=== PATIENT | female | born 1995 | race African-American/Black ===

== ENCOUNTER 2016-11-16 07:16 | Emergency (ER) | payer SELFPAY ==
[2016-08-19 16:54] VITALS: BP 157/98
[~2016-11-16 07:16] MED LIST: CEPH-264 PO; METR500T PO
== END 2016-11-16 07:40 | disposition left against medical advice (07) ==
LOC: ER 07:16
DX: M25.572 Pain in left ankle and joints of left foot (principal); Z53.21 Procedure and treatment not carried out due to patient leaving prior to being seen by health care provider; X58.XXXA Exposure to other specified factors, initial encounter; Y93.89 Activity, other specified; Y92.89 Other specified places as the place of occurrence of the external cause; Y99.8 Other external cause status

== ENCOUNTER 2017-01-25 11:20 | Emergency (ER) | payer SELFPAY ==
[~2017-01-25] VITALS: Ht 157.5 cm; Wt 127.0 kg
[2017-01-25 12:15] VITALS: BP 143/74
--- NOTE | 2017-01-25 12:32 | PHYS DOC ---
Past Medical History Past Medical History: No Pertinent History Additional Past Medical Histor: slightly enlarged heart, TRICH Past Surgical History: No Surgical History Alcohol Use: None Drug Use: Marijuana Adult General Chief Complaint Chief Complaint: CHEST PAIN-NON CARDIAC NATURE HPI HPI Patient is a 21 year old female who presents with complaint of an acute episode of shortness of breath and chest pain. Patient states that she was at work upon onset of symptoms. Patient states she started to feel sharp pain in the middle of her chest and had associated shortness of breath. Patient states that she started feeling very anxious at the time of occurrence. Patient states that her episode started at 1100 today. Patient states symptoms lasted for approximately 15 minutes and then resolved spontaneously. Patient did not feel like she was having any palpitations. Patient states currently she has no chest pain and states that she feels at her baseline state of health. Patient denies any history of medical problems and is not currently on any medications or supplements. Patient states that she had a similar episode several months ago that resolved on its own. Patient feels that she is likely experiencing panic attacks. Patient states that she has stress in her life which she admits that she does not address her cope with well. Patient denies any significant family history for heart trouble or blood clots. Review of Systems Review of Systems Constitutional: Denies fever or chills [] Eyes: Denies change in visual acuity, redness, or eye pain [] HENT: Denies nasal congestion or sore throat [] Respiratory: Shortness of breath [] Cardiovascular: Chest pain, denies edema [] GI: Denies abdominal pain, nausea, vomiting, bloody stools or diarrhea [] : Denies dysuria or hematuria [] Musculoskeletal: Denies back pain or joint pain [] Integument: Denies rash or skin lesions [] Neurologic: Denies headache, focal weakness or sensory changes [] Family History Family History Negative for cardiac problems or clotting disorders Current Medications Current Medications None Allergies Allergies Allergies Coded Allergies Type Severity Reaction Last Updated Verified No Known Drug Allergies 06/19/14 No Physical Exam Physical Exam Constitutional: Alert, obese, afebrile, no acute distress. [] HENT: Normocephalic, atraumatic, bilateral external ears normal, oropharynx moist, no oral exudates, nose normal. [] Eyes: PERRLA, EOMI, conjunctiva normal, no discharge. [] Neck: Normal range of motion, no tenderness, supple, no stridor. [] Cardiovascular:Heart rate regular rhythm, no murmur [] Lungs & Thorax: Bilateral breath sounds clear to auscultation [] Abdomen: Bowel sounds normal, soft, no tenderness, no masses, no pulsatile masses. [] Skin: Warm, dry, no erythema, no rash. [] Back: No tenderness, no CVA tenderness. [] Extremities: No tenderness, no cyanosis, no clubbing, ROM intact, no edema. [] Neurologic: Alert and oriented X 3, normal motor function, normal sensory function, no focal deficits noted. [] Current Patient Data Vital Signs Vital Signs Date Time Temp Pulse Resp B/P (MAP) Pulse Ox O2 Delivery O2 Flow Rate FiO2 01/25/17 12:15 98.9 66 18 143/74 (97) 98 Room Air 98.9 EKG EKG Interpreted by me: Heart rate 67, sinus rhythm, normal intervals, normal axis, no acute ST elevations or depressions, nonspecific T-wave inversion in lead 3 [] Radiology/Procedures Radiology/Procedures Not performed [] Course & Med Decision Making Course & Med Decision Making Pertinent Labs and Imaging studies reviewed. (See chart for details) The patient had a mildly elevated blood pressure of 143 systolic. At this time no treatment is recommended however I did explain to patient that she would need continued follow-up on an outpatient basis to evaluate for essential hypertension and possible need for treatment. The patient was offered a chest x- ray however she declined stating that she felt well and did not feel that she needed this time. She states that she feels confident her symptoms are likely due to stress with a panic attack and does not wish to have any further workup. I do not feel this to be unreasonable at this time. The patient agreed to close follow-up in 2-3 days with her primary doctor for reevaluation. Advised return to emergency department for any worsening symptoms. Patient was understanding and in agreement with treatment plan. Dragon Disclaimer Dragon Disclaimer This electronic medical record was generated, in whole or in part, using a voice recognition dictation system. Departure Departure Impression: Primary Impression: Acute stress reaction Disposition: 01 HOME, SELF-CARE Condition: IMPROVED Referrals: NO PCP (PCP) Patient Instructions: Anxiety and Panic Attacks, [id number], Stress Additional Instructions: Follow-up in 2-3 days with primary doctor. Return to emergency department for any worsening symptoms. COREY WALLACE MD January 25, 2017 12:32
--- NOTE | 2017-01-25 15:18 | EKG ---
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
== END 2017-01-25 12:52 | disposition home or self-care (01) ==
LOC: ER 11:30
DX: F43.0 Acute stress reaction (principal); R07.89 Other chest pain; F12.10 Cannabis abuse, uncomplicated
CPT/HCPCS: 93005; 99283-25

== ENCOUNTER 2017-01-26 23:47 | Emergency (ER) | payer SELFPAY ==
[~2017-01-26] VITALS: Ht 157.5 cm; Wt 124.7 kg
[2017-01-27] VITALS: BP 161/84
[2017-01-27] MEDS ORDERED: PRED20TA PO (00:03)
[2017-01-27] MEDS ORDERED: ALBU8.5H5 IH (00:03)
[2017-01-27] MEDS ORDERED: AZIT250T6 PO (00:03)
--- NOTE | 2017-01-27 00:04 | PHYS DOC ---
Past Medical History Past Medical History: No Pertinent History, STD Additional Past Medical Histor: slightly enlarged heart Past Surgical History: No Surgical History Alcohol Use: None Drug Use: None Adult General Chief Complaint Chief Complaint: COUGH HPI HPI Patient is a 21 year old female presents to the emergency department with a ten -day history of cough. No fever. Review of Systems Review of Systems Constitutional: Denies fever or chills [] Eyes: Denies change in visual acuity, redness, or eye pain [] HENT: Denies nasal congestion or sore throat [] Respiratory: Denies cough or shortness of breath [] Cardiovascular: No additional information not addressed in HPI [] GI: Denies abdominal pain, nausea, vomiting, bloody stools or diarrhea [] : Denies dysuria or hematuria [] Musculoskeletal: Denies back pain or joint pain [] Integument: Denies rash or skin lesions [] Neurologic: Denies headache, focal weakness or sensory changes [] Endocrine: Denies polyuria or polydipsia [] Allergies Allergies Allergies Coded Allergies Type Severity Reaction Last Updated Verified No Known Drug Allergies 06/19/14 No Physical Exam Physical Exam Constitutional: Well developed, well nourished, no acute distress, non-toxic appearance. [] HENT: Normocephalic, atraumatic, bilateral external ears normal, oropharynx moist, no oral exudates, nose normal. [] Eyes: PERRLA, EOMI, conjunctiva normal, no discharge. [] Neck: Normal range of motion, no tenderness, supple, no stridor. No lymphadenopathy [] Cardiovascular:Heart rate regular rhythm, no murmur [] Lungs & Thorax: Scattered rhonchi Abdomen: Bowel sounds normal, soft, no tenderness, no masses, no pulsatile masses. [] Skin: Warm, dry, no erythema, no rash. [] Back: No tenderness, no CVA tenderness. [] Extremities: No tenderness, no cyanosis, no clubbing, ROM intact, no edema. [] Neurologic: Alert and oriented X 3, normal motor function, normal sensory function, no focal deficits noted. [] Psychologic: Affect normal, judgement normal, mood normal. [] EKG EKG [] Radiology/Procedures Radiology/Procedures [] Course & Med Decision Making Course & Med Decision Making Pertinent Labs and Imaging studies reviewed. (See chart for details) [] Dragon Disclaimer Dragon Disclaimer This electronic medical record was generated, in whole or in part, using a voice recognition dictation system. Departure Departure Impression: Primary Impression: Bronchitis Disposition: 01 HOME, SELF-CARE Condition: STABLE Referrals: NO PCP (PCP) Patient Instructions: Acute Bronchitis Scripts Prednisone (PREDNISONE) 20 Mg Tablet 20 MG PO DAILY for 5 Days, #5 TAB Prov: HAYDEN GUZMÁN APRN 01/27/17 Albuterol Sulfate (Proair Hfa) 8.5 Gm Hfa.aer.ad 8.5 GM IH 4 times a day Y for shortness of air, #1 INHALER Prov: HAYDEN GUZMÁN APRN 01/27/17 Azithromycin (AZITHROMYCIN TABLET) 250 Mg Tablet 250 MG PO DAILY for ANTI-BIOTIC, #6 TAB 0 Refills 2 tablets on day 1 and 1 tablets on day 2 through 5 Prov: HAYDEN GUZMÁN APRN 01/27/17 HAYDEN GUZMÁN APRN January 27, 2017 00:04
== END 2017-01-27 00:15 | disposition home or self-care (01) ==
LOC: ER 23:47
DX: J20.9 Acute bronchitis, unspecified (principal)
CPT/HCPCS: 99283

== ENCOUNTER 2017-02-01 21:49 | Emergency (ER) | payer SELFPAY ==
[~2017-02-01] VITALS: Ht 157.5 cm; Wt 79.4 kg
[~2017-02-01 21:49] MED LIST changes: +ALBU8.5H5 IH; +AZIT250T6 PO; +PRED20TA PO
[2017-02-01 22:13] VITALS: BP 168/100
[2017-02-01 22:16] LABS: BILIRUBIN,URINE NEGATIVE (NEG); GLUCOSE,URINE NEGATIVE (NEG); NITRITE,URINE NEGATIVE (NEG); PH,URINE 7.5; PROTEIN,URINE NEGATIVE (NEG-TRACE)
[2017-02-01 22:22] LABS: BACTERIA,URINE FEW /HPF (0-FEW); RBC,URINE 0 /HPF (0-2); SQUAMOUS EPITHELIAL CELL,UR MANY /LPF; YEAST,URINE PRESENT /HPF
--- NOTE | 2017-02-01 22:22 | PHYS DOC ---
Past Medical History Past Medical History: No Pertinent History, STD Additional Past Medical Histor: slightly enlarged heart Past Surgical History: No Surgical History Alcohol Use: Occasionally Drug Use: None Adult General Chief Complaint Chief Complaint: PAIN ON URINATION HPI HPI Patient is a 21 year old female with no significant medical history who presents with dysuria, concern for STDs with vaginal discharge for couple days, low abdominal cramping for couple days, and low back pain for couple days. Patient denies any trauma. Patient states her significant other informed her he was cheating on her. Patient would like to be tested for STDs and treated. Review of Systems Review of Systems Constitutional: Denies fever or chills [] Eyes: Denies change in visual acuity, redness, or eye pain [] HENT: Denies nasal congestion or sore throat [] Respiratory: Denies cough or shortness of breath [] Cardiovascular: No additional information not addressed in HPI [] GI: abdominal pain lower : dysuria and vag discharge Musculoskeletal: Denies back pain or joint pain [] Integument: Denies rash or skin lesions [] Neurologic: Denies headache, focal weakness or sensory changes [] Endocrine: Denies polyuria or polydipsia [] Current Medications Current Medications Current Medications Medications (Trade) Dose Ordered Sig/Calli Start Time Stop Time Status Last Admin Dose Admin Azithromycin (Zithromax) 1,000 mg 1X ONCE 02/01/17 22:30 02/01/17 22:31 DC 02/01/17 22:28 1,000 MG Ceftriaxone Sodium (Rocephin Im) 250 mg 1X ONCE 02/01/17 22:30 02/01/17 22:31 DC 02/01/17 22:27 250 MG Fluconazole (Diflucan) 150 mg 1X ONCE 02/01/17 22:45 02/01/17 22:46 DC Metronidazole (Flagyl) 2,000 mg 1X ONCE 02/01/17 22:30 02/01/17 22:31 DC 02/01/17 22:28 2,000 MG Allergies Allergies Allergies Coded Allergies Type Severity Reaction Last Updated Verified No Known Drug Allergies 06/19/14 No Physical Exam Physical Exam Constitutional: Well developed, well nourished, no acute distress, non-toxic appearance. [] HENT: Normocephalic, atraumatic, bilateral external ears normal, oropharynx moist, no oral exudates, nose normal. [] Eyes: PERRLA, EOMI, conjunctiva normal, no discharge. [] Neck: Normal range of motion, no tenderness, supple, no stridor. [] Cardiovascular:Heart rate regular rhythm, no murmur [] Lungs & Thorax: Bilateral breath sounds clear to auscultation [] Abdomen: Bowel sounds normal, soft, no tenderness, no masses, no pulsatile masses. [] Pelvic exam External pelvic appears normal, cervix not well visualized due to body habitus, no CMT, no adnexal tenderness, small amount of yellow discharge in the vaginal vault. Skin: Warm, dry, no erythema, no rash. [] Back: No tenderness, no CVA tenderness. [] Extremities: No tenderness, no cyanosis, no clubbing, ROM intact, no edema. [] Neurologic: Alert and oriented X 3, normal motor function, normal sensory function, no focal deficits noted. [] Psychologic: Affect normal, judgement normal, mood normal. [] Current Patient Data Vital Signs Vital Signs Date Time Temp Pulse Resp B/P (MAP) Pulse Ox O2 Delivery O2 Flow Rate FiO2 02/01/17 22:13 98.7 85 20 97 Room Air 98.7 Lab Values Laboratory Tests Test 02/01/17 21:19 02/01/17 21:58 POC Urine HCG, Qualitative Hcg negative (Negative) Urine Collection Type Unknown Urine Color Yellow Urine Clarity Clear Urine pH 7.5 Urine Specific [place] 1.025 Urine Protein Negative mg/dL (NEG-TRACE) Urine Glucose (UA) Negative mg/dL (NEG) Urine Ketones (Stick) Negative mg/dL (NEG) Urine Blood Negative (NEG) Urine Nitrite Negative (NEG) Urine Bilirubin Negative (NEG) Urine Urobilinogen Dipstick 1.0 mg/dL (0.2 mg/dL) Urine Leukocyte Esterase Large (NEG) Urine RBC 0 /HPF (0-2) Urine WBC 11-20 /HPF (0-4) Urine Squamous Epithelial Cells Many /LPF Urine Bacteria Few /HPF (0-FEW) Urine Mucus Mod /LPF Urine Yeast Present /HPF Microbiology 02/01/17 Wet Prep - Final, Complete EKG EKG [] Radiology/Procedures Radiology/Procedures [] Course & Med Decision Making Course & Med Decision Making Pertinent Labs and Imaging studies reviewed. (See chart for details) Patient is in the ED with concern for STDs. She has dysuria and vaginal discharge as well as lower abdominal cramping and back pain. Patient states the significant other informed her he was cheating. The patient would like to be tested and treated for STDs. Negative urine hCG. PCR cultures were obtained and send for STDs. She was given Flagyl Rocephin and azithromycin prophylaxis in the ED. Urine has infection though it appears contaminated. Patient has UTI symptoms. I will go ahead and treat her Bactrim. Wet prep positive for yeast infection. She was discharged with fluconazole. Recommended [id number]-risytly miconazole in the meantime as well as increasing probiotic intake as well as using yogurt. Encouraged to call has sex partners let them know she was treated for STDs and ask them to seek treatment too. Follow-up with the health department for further STD concerns. Dragon Disclaimer Dragon Disclaimer This electronic medical record was generated, in whole or in part, using a voice recognition dictation system. Departure Departure Impression: Primary Impression: Concern about STD in female without diagnosis Additional Impressions: UTI (urinary tract infection) Yeast infection Disposition: 01 HOME, SELF-CARE Condition: STABLE Referrals: NO PCP (PCP) Follow-up with the health department for further STD concerns Patient Instructions: Julianna Infection, Adult, Sexually Transmitted Disease, [id number], Urinary Tract Infection Additional Instructions: You were seen for urinary tract infection, yeast infection, and concern for STDs. You were treated prophylaxis for STDs in the emergency room. You will be discharged with prescription for yeast infection as well as antibiotics for UTI. Take them as prescribed. Ensure you complete them. You cannot have sex for 7 days. Ensure you contact all your sex partners let them know you were treated for STDs and ask them to seek treatment too. Use protection at all times. Scripts Fluconazole (FLUCONAZOLE) 150 Mg Tablet 150 MG PO ONCE, #1 TAB Text 7 days from today Prov: SHEELA TAYLOR APRN 02/01/17 Sulfamethoxazole/Trimethoprim (BACTRIM 400-80 MG TABLET) 1 Each Tablet 1 TAB PO BID, #10 TAB Prov: SHEELA TAYLOR APRN 02/01/17 Problem Qualifiers Additional Impressions: UTI (urinary tract infection) Urinary tract infection type: acute cystitis Hematuria presence: without hematuria Qualified Codes: N30.00 - Acute cystitis without hematuria SHEELA TAYLOR APRN February 01, 2017 22:22
[2017-02-01] MEDS ORDERED: cefTRIAXone IM 250 MG VIAL IM ONE (22:30)
[2017-02-01] MEDS ORDERED: AZITHROMYCIN 250 MG TABLET. PO ONE (22:30)
[2017-02-01] MEDS ORDERED: metroNIDAZOLE 500 MG TABLET PO ONE (22:30)
[2017-02-01] MEDS ORDERED: FLUCONAZOLE 100 MG TABLET. PO ONE (22:45)
[2017-02-01] MEDS ORDERED: SULF1TAB23 PO (22:53)
[2017-02-01] MEDS ORDERED: FLUC150T2 PO (22:53)
== END 2017-02-01 23:05 | disposition home or self-care (01) ==
LOC: ER 21:49
DX: N39.0 Urinary tract infection, site not specified (principal); B37.9 Candidiasis, unspecified; Z20.2 Contact with and (suspected) exposure to infections with a predominantly sexual mode of transmission
CPT/HCPCS: 81001; 84703; 87086; 87491; 87591; 96372; 99284; J0696; Q0111; Q0144; 81025; 90471; 99283-25

== ENCOUNTER 2019-02-05 21:36 | Emergency (ER) | payer SELFPAY ==
[~2019-02-05] VITALS: Ht 160 cm; Wt 129.3 kg
[~2019-02-05 21:36] MED LIST changes: +ALBU2.5V8 IH; -ALBU8.5H5 IH; +FLUC150T2 PO; +SULF1TAB23 PO
[2019-02-05 22:32] LABS: BASO # 0.1 x10^3/uL (0.0-0.2); BASO % 1 % (0-3); EOS # 0.1 x10^3/uL (0.0-0.7); EOS % 1 % (0-3); HEMATOCRIT 41.2 % (36.0-47.0); HEMOGLOBIN 14.1 g/dL (12.0-15.5); LYMPH % 32 % (24-48); MEAN CORPUSCULAR HEMOGLOBIN 30 pg (25-35); MEAN CORPUSCULAR HGB CONC 34 g/dL (31-37); MEAN CORPUSCULAR VOLUME 87 fL (79-100); MONO # 0.8 x10^3/uL (0.0-1.1); MONO % 7 % (0-9); NEUT # 7.4 x10^3uL (1.8-7.7); NEUT % 60 % (31-73); PLATELET COUNT 392 x10^3/uL (140-400); RED BLOOD COUNT 4.76 x10^6/uL (3.50-5.40); RED CELL DISTRIBUTION WIDTH 13.4 % (11.5-14.5); WHITE BLOOD COUNT 12.4 x10^3/uL (4.0-11.0)
[2019-02-05 22:35] LABS: AMPHETAMINE/METHAMPHETAMINE NEG (NEG); BARBITURATES NEG (NEG); BENZODIAZEPINES NEG (NEG); CANNABINOIDS POS (NEG); COCAINE NEG (NEG); METHADONE NEG (NEG); OPIATES NEG (NEG); PHENCYCLIDINE NEG (NEG)
[2019-02-05 22:40] LABS: CALCIUM 8.7 mg/dL (8.5-10.1); GFR 81.7; POTASSIUM 3.6 mmol/L (3.5-5.1)
[2019-02-05 22:46] LABS: ALBUMIN 3.7 g/dL (3.4-5.0); ALBUMIN/GLOBULIN RATIO 1.2 (1.0-1.7); TOTAL BILIRUBIN 0.4 mg/dL (0.2-1.0); TOTAL PROTEIN 6.8 g/dL (6.4-8.2)
[2019-02-05] MEDS ORDERED: cloNIDine HCL 0.1 MG TABLET PO ONE ×2 (23:00→23:45)
[2019-02-06] MEDS ORDERED: LISI10TA2 PO (00:01)
[2019-02-06] MEDS ORDERED: HYDR25TA PO (00:01)
--- NOTE | 2019-02-06 00:01 | PHYS DOC ---
Past Medical History Past Medical History: Anxiety, STD, Other Additional Past Medical Histor: slightly enlarged heart Past Surgical History: No Surgical History Alcohol Use: Occasionally Drug Use: None Adult General Chief Complaint Chief Complaint: CHEST PAIN HPI HPI Patient is a 23 year old female presents with chest pressure starting 2 hours prior to ED arrival. Patient reports feeling anxious prior to symptom onset. Patient denies nausea, vomiting, shortness of breath, chills, sweats, abdominal pain. No back or flank pain. Patient states she had similar symptoms one week ago when seen at outside ED and was diagnosed with anxiety. Patient has also been seen in this facility in the past with similar symptoms. Note, patient states her blood pressures being elevated past 5 days. She is unaware of her baseline blood pressure, but states she has never been diagnosed with hypertension and does not take blood pressure medications. Last menstrual period was 3 weeks ago. No other acute symptoms or complaints. Denies alcohol or drug use.[] Review of Systems Review of Systems ROS as per HPI All other systems were reviewed and found to be within normal limits, except as documented in this note. Current Medications Current Medications Current Medications Medications (Trade) Dose Ordered Sig/Calli Start Time Stop Time Status Last Admin Dose Admin Clonidine HCl (Catapres) 0.2 mg 1X ONCE 02/05/19 23:45 02/05/19 23:46 DC Allergies Allergies Allergies Coded Allergies Type Severity Reaction Last Updated Verified No Known Drug Allergies 06/19/14 No Physical Exam Physical Exam Constitutional: Well developed, well nourished, no acute distress, non-toxic ap pearance. [] HENT: Normocephalic, atraumatic, bilateral external ears normal, oropharynx moist, no oral exudates, nose normal. [] Eyes: PERRLA, EOMI, conjunctiva normal, no discharge. [] Neck: Normal range of motion, no tenderness, supple, no stridor. [] Cardiovascular:Heart rate regular rhythm, no murmur [] Lungs & Thorax: Bilateral breath sounds clear to auscultation [] Abdomen: Bowel sounds normal, soft, no tenderness, no masses, no pulsatile masses. [] Skin: Warm, dry, no erythema, no rash. [] Back: No tenderness, no CVA tenderness. [] Extremities: No tenderness, no cyanosis, no clubbing, ROM intact, no edema. [] Neurologic: Alert and oriented X 3, normal motor function, normal sensory function, no focal deficits noted. [] Psychologic: Affect, anxious,judgement normal, mood normal. [] Current Patient Data Vital Signs Vital Signs Date Time Temp Pulse Resp B/P (MAP) Pulse Ox O2 Delivery O2 Flow Rate FiO2 02/05/19 22:42 80 162/100 02/05/19 21:57 98.1 24 98 Room Air 98.1 Lab Values Laboratory Tests Test 02/05/19 22:05 02/05/19 22:12 02/05/19 22:25 Urine Opiates Screen Neg (NEG) Urine Methadone Screen Neg (NEG) Urine Barbiturates Neg (NEG) Urine Phencyclidine Screen Neg (NEG) Urine Amphetamine/Methamphetamine Neg (NEG) Urine Benzodiazepines Screen Neg (NEG) Urine Cocaine Screen Neg (NEG) Urine Cannabinoids Screen Pos (NEG) Urine Ethyl Alcohol Neg (NEG) POC Urine HCG, Qualitative Hcg negative (Negative) White Blood Count 12.4 x10^3/uL (4.0-11.0) H Red Blood Count 4.76 x10^6/uL (3.50-5.40) Hemoglobin 14.1 g/dL (12.0-15.5) Hematocrit 41.2 % (36.0-47.0) Mean Corpuscular Volume 87 fL (79-100) Mean Corpuscular Hemoglobin 30 pg (25-35) Mean Corpuscular Hemoglobin Concent 34 g/dL (31-37) Red Cell Distribution Width 13.4 % (11.5-14.5) Platelet Count 392 x10^3/uL (140-400) Neutrophils (%) (Auto) 60 % (31-73) Lymphocytes (%) (Auto) 32 % (24-48) Monocytes (%) (Auto) 7 % (0-9) Eosinophils (%) (Auto) 1 % (0-3) Basophils (%) (Auto) 1 % (0-3) Neutrophils # (Auto) 7.4 x10^3uL (1.8-7.7) Lymphocytes # (Auto) 4.0 x10^3/uL (1.0-4.8) Monocytes # (Auto) 0.8 x10^3/uL (0.0-1.1) Eosinophils # (Auto) 0.1 x10^3/uL (0.0-0.7) Basophils # (Auto) 0.1 x10^3/uL (0.0-0.2) D-Dimer (Rika) 0.28 ug/mlFEU (0.00-0.50) Sodium Level 142 mmol/L (136-145) Potassium Level 3.6 mmol/L (3.5-5.1) Chloride Level 105 mmol/L (98-107) Carbon Dioxide Level 29 mmol/L (21-32) Anion Gap 8 (6-14) Blood Urea Nitrogen 12 mg/dL (7-20) Creatinine 1.0 mg/dL (0.6-1.0) Estimated GFR (Cockcroft-Gault) 81.7 BUN/Creatinine Ratio 12 (6-20) Glucose Level 96 mg/dL (70-99) Calcium Level 8.7 mg/dL (8.5-10.1) Total Bilirubin 0.4 mg/dL (0.2-1.0) Aspartate Amino Transferase (AST) 15 U/L (15-37) Alanine Aminotransferase (ALT) 42 U/L (14-59) Alkaline Phosphatase 59 U/L (46-116) Total Protein 6.8 g/dL (6.4-8.2) Albumin 3.7 g/dL (3.4-5.0) Albumin/Globulin Ratio 1.2 (1.0-1.7) Laboratory Tests 02/05/19 22:25 Laboratory Tests 02/05/19 22:25 EKG EKG [EKG: NAD] Radiology/Procedures Radiology/Procedures [CXR: NAD] Course & Med Decision Making Course & Med Decision Making Pertinent Labs and Imaging studies reviewed. (See chart for details) [Chest pressure resolved with tx, Blood pressure improved with tx. Labs, ekg and imaging reviewed. Return precautions reviewed. ] Dragon Disclaimer Dragon Disclaimer This electronic medical record was generated, in whole or in part, using a voice recognition dictation system. Departure Departure Impression: Primary Impression: Chest pain Additional Impressions: Accelerated hypertension Acute anxiety Disposition: HOME, SELF-CARE Condition: GOOD Referrals: NO PCP (PCP) Patient Instructions: Anxiety and Panic Attacks, Arterial Hypertension, Chest Pain (Nonspecific) Additional Instructions: Please go home and rest take medications as directed. Follow-up with your PCP in 3-5 days for reevaluation. Return to the ED if new or worsening symptoms Scripts Lisinopril (LISINOPRIL) 10 Mg Tablet 1 TAB PO DAILY, #30 TAB 5 Refills Prov: CANDACE BACA DO 02/06/19 Hydroxyzine Hcl (HYDROXYZINE HCL) 25 Mg Tablet 1 TAB PO TID, #10 TAB Prov: CANDACE BACA DO 02/06/19 Problem Qualifiers CANDACE BACA DO February 06, 2019 00:01
[2019-02-06 00:09] VITALS: BP 138/87
--- NOTE | 2019-02-06 02:10 | RAD ---
PROCEDURE: CHEST AP ONLY CLINICAL INDICATION: Chest pain COMPARISON: None FINDINGS: No pneumothorax identified. Cardiac and mediastinal contours unremarkable. No pulmonary consolidation or acute airspace disease. No acute osseous abnormalities identified. IMPRESSION: No pulmonary consolidation or acute airspace disease. Electronically signed by: Sd Mehta DO (02/06/2019 2:07 AM) [facility]
--- NOTE | 2019-02-06 12:35 | EKG ---
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
== END 2019-02-06 00:45 | disposition home or self-care (01) ==
LOC: ER 21:36
DX: R07.89 Other chest pain (principal); I10 Essential (primary) hypertension; F41.9 Anxiety disorder, unspecified
CPT/HCPCS: 36415; 71045; 80053; 80307; 81025; 85025; 85379; 93005; 99285-25